=== PATIENT | female | born 1995 | race African-American/Black ===

== ENCOUNTER 2016-03-17 20:00 | Emergency (ER) | payer OTHER ==
[2016-03-17] MEDS ORDERED: ONDANSETRON 4 MG ORAL DISINTEGRATING TAB (S0181) As Ordered ONE (22:33)
[2016-03-17] MEDS ORDERED: KETOROLAC 30 MG/ML VIAL (J1885) As Ordered ONE (22:33)
[2016-03-17] MEDS ORDERED: NORCO 5/325MG TABLET (BULK) As Ordered ONE (23:29)
--- NOTE | 2016-03-17 23:34 | EDDOCDS ---
Physician Documentation [facility] Name: Jarred Layne Age: 20 yrs Sex: Female : 1995 Arrival Date: 03/17/2016 Time: 20:00 Bed PD Private MD: Other - Complete Info On Cds Disposition: 03/17/16 22:27 Discharged to Home/Self Care. Impression: Dysmenorrhea, unspecified. - Condition is Stable. - Discharge Instructions: Dysmenorrhea. - Prescriptions for ZOFRAN ODT 4 mg - dissolve 1 tablet by ORAL route 4 times per day As needed do not chew, do not swallow whole; 10 tablet. - Medication Reconciliation, Local Pharmacy Hours form. - Follow up: Elfego Cabrera MD; When: Call to arrange an appointment; Reason: Recheck today's complaints, Continuance of care. - Problem is new. - Symptoms are unchanged. Historical: - Allergies: no known allergies; - Home Meds: 1. ibuprofen 400 mg Oral tab 1 tab every 6 hours (Last dose: 03/17/2016 15:00) - PMHx: none; - PSHx: none; - Social history: Smoking status: Patient states was never smoker of tobacco. No barriers to communication noted. - Family history: Not pertinent. - : The pt / caregiver states he / she is not on anticoagulants. Home medication list is obtained from the patient. - Exposure Risk Screening:: None identified. 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 2 in. (157.48 cm) (R); Pain 8/10; 22:01 BP 109 / 59; Pulse 75; Resp 16; Temp 99.7(O); Pulse Ox 98% on R/A; Pain 3/10; sew 23:04 BP 109 / 58; Pulse 88; Resp 16; Temp 98.4(O); Pulse Ox 97% on R/A; Pain 0/10; sew 20:03 Body Mass Index 24.69 (61.23 kg, 157.48 cm) mt4 MDM: 22:18 Ondansetron ODT Oral Disintegrating Tablet 4 mg PO once ordered. mo1 22:18 ketorolac 60 mg IM once ordered. mo1 22:18 HYDROcodone-acetaminophen 4 pack- 5 mg-325 mg 1 packets PO Per package directions; mo1 Dispense with patient. 1 po q4h prn for pain ordered. 22:26 Financial registration complete. 22:33 [facility] Agreement was scanned into [employer] and attached to record. gb 22:39 HYDROcodone-acetaminophen 4 pack- 5 mg-325 mg 1 packets PO Per package directions; jf3 Dispense with patient. 1 po q4h prn for pain ordered. Administered Medications: 22:39 Drug: ketorolac 60 mg [ketorolac 30 mg/mL (1 mL) injection solution (2 mL)] Route: IM; jf3 Site: right gluteus; 23:31 Follow up: Response: Pain is decreased slm 22:40 Drug: Ondansetron ODT 4 mg [ondansetron 4 mg disintegrating tablet (1 tabs)] Route: PO; jf3 23:31 Follow up: Response: Nausea is resolved slm 23:30 Drug: HYDROcodone-acetaminophen 4 pack- 1 packets [hydrocodone 5 mg-acetaminophen 325 slm mg tablet (1 tabs)] {Co-Signature: [email or web address] (Shira Francois RN).} Route: PO; Signatures: Corry Rios, Reg Reg Leonie Lopez RN RN [facility] Tj Dean PA PA mo1 Sonam Salmeron LPN LPN [facility] Christopher Mackay RN RN jf3 Shira Francois RN ld5 The chart was reviewed and I authenticate all verbal orders and agree with the evaluation and treatment provided.Attachments: 22:33 [facility] Payment Agreement gb [facility]
--- NOTE | 2016-03-17 23:34 | EDDOCDS ---
Nurse's Notes [facility] Name: Jarred Layne Age: 20 yrs Sex: Female : 1995 Arrival Date: 03/17/2016 Time: 20:00 Bed PD Private MD: Other - Complete Info On Cds Diagnosis: Dysmenorrhea, unspecified Presentation: 03/17 20:18 Presenting complaint: Patient states: my stomach hurts really really bad it started cj earlier this morning after eating breakfast, vomiting about five times, not able to eat or drink anything at all. Risk factors: the patient reports currently having a regular period. Adult Sepsis Screening: The patient does not have new or worsening altered mentation. Patient's respiratory rate is less than 22. Systolic blood pressure is greater than 100. Patient has a qSOFA score of 0- Negative Sepsis Screen. Suicide/Homicide risk assessment- the patient denies having any suicidal and/or homicidal ideations and does not present with any other emotional, behavioral or mental health complaints. 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 Transition of care: patient was not received from another setting of care. 20:18 Acuity: HEENA Level 3 [facility] 20:18 Method Of Arrival: Walkin/Carried/Asstd [facility] Triage Assessment: 20:21 General: Appears uncomfortable, Behavior is drowsy. Pain: Location: left lower quadrant [facility] Pain currently is 8 out of 10 on a pain scale. HIV screening NA for this visit Offered previously. active duty . GI: Reports nausea, vomiting, normal bowel habits. 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 ibuprofen 400 mg Oral tab 1 tab every 6 hours (Last dose: 03/17/2016 15:00) - PMHx: none; - PSHx: none; - Social history: Smoking status: Patient states was never smoker of tobacco. No barriers to communication noted. - Family history: Not pertinent. - : The pt / caregiver states he / she is not on anticoagulants. Home medication list is obtained from the patient. - Exposure Risk Screening:: None identified. Screenin:32 Screening information is obtained from the patient. Fall risk: No risks identified. slm Assistance ADL's: requires no assistance with activities of daily living. Abuse/DV Screen: The patient / caregiver reports he/she is: not in a situation that causes fear, pain or injury. Nutritional screening: No deficits noted. Advance Directives: Currently, there is no health care proxy. There is no active DNR order. There is There is no Power of Roll Tester. Advance directive information has not previously been placed in an [facility] medical record. Further advance directive information is declined. home support is adequate. Assessment: 22:40 General: Appears in no apparent distress, comfortable, Behavior is cooperative. Pain: jf3 Location: right lower quadrant and left lower quadrant Pain currently is 3 out of 10 on a pain scale. Neurological: Level of Consciousness is awake, alert, Oriented to person, place, time. Cardiovascular: Chest pain is denied. Respiratory: Airway is patent Respiratory effort is even, unlabored, Respiratory pattern is regular, symmetrical. GI: Abdomen is non- distended. Derm: Skin is normal. 22:41 General:. jf3 23:32 Reassessment: Patient appears in no apparent distress at this time. Patient states slm feeling better. Vital Signs: 20:03 BP 120 / 59 RA Sitting (auto/reg); Pulse 80 RA; Resp 18 S; Temp 98.5(O); Pulse Ox 100% mt4 on R/A; Weight 61.23 kg (R); Height 5 ft. 2 in. (157.48 cm) (R); Pain 8/10; 22:01 BP 109 / 59; Pulse 75; Resp 16; Temp 99.7(O); Pulse Ox 98% on R/A; Pain 3/10; sew 23:04 BP 109 / 58; Pulse 88; Resp 16; Temp 98.4(O); Pulse Ox 97% on R/A; Pain 0/10; sew 20:03 Body Mass Index 24.69 (61.23 kg, 157.48 cm) nv4 Vitals: 20:03 Log In Time: March 17, 2016 at 20:00. nv4 ED Course: 20:03 Patient visited by Caitlyn Caldera. mt4 20:03 Other - Complete Info On Cds is Private Physician. mt4 20:03 Patient moved to Waiting mt4 20:04 Patient moved to Pre RCE mt4 20:20 Triage Initiated [facility] 21:58 Patient moved to Triage 1 sew 22:01 Patient visited by Arina Hairston. sew 22:03 [facility] mo1 22:03 Ike Hall DO is Attending Physician. mo1 22:12 Patient visited by Tj Dean PA. mo1 22:27 Elfego Cabrera MD is Referral Physician. mo1 22:32 Patient name changed from Bradleya\S\D\S\Layne\S\ to Vonniesha\S\Deshunn\S\Layne. EDMS 22:33 [facility] Payment Agreement was scanned into [employer] and attached to record. gb 22:35 Patient moved to PD jf3 22:41 Patient visited by Christopher Mackay RN. jf3 23:04 Patient visited by Arina Hairston. sew 23:31 Sonam Salmeron LPN is Primary Nurse. slm 23:32 No IV's were initiated during this patient's visit. No procedures done that require slm assistance. 23:33 The patient / caregiver is instructed regarding the plan of care and ED course. Patient slm has correct armband on for positive identification. Bed in low position. Call light in reach. Side rails up X 1. Administered Medications: 22:39 Drug: ketorolac 60 mg [ketorolac 30 mg/mL (1 mL) injection solution (2 mL)] Route: IM; jf3 Site: right gluteus; 23:31 Follow up: Response: Pain is decreased slm 22:40 Drug: Ondansetron ODT 4 mg [ondansetron 4 mg disintegrating tablet (1 tabs)] Route: PO; jf3 23:31 Follow up: Response: Nausea is resolved slm 23:30 Drug: HYDROcodone-acetaminophen 4 pack- 1 packets [hydrocodone 5 mg-acetaminophen 325 slm mg tablet (1 tabs)] {Co-Signature: [email or web address] (Shira Francois RN).} Route: PO; Order Results: There are currently no results for this order. Outcome: 22:27 Discharge ordered by Provider. mo1 23:32 Discharge Assessment: Patient awake, alert and oriented x 3. No cognitive and/or slm functional deficits noted. Patient verbalized understanding of disposition instructions. patient administered narcotics - no. The following High Risk Discharge criteria are identified: None. Discharged to home ambulatory. Condition: good Condition: improved. Discharge instructions given to patient, Instructed on discharge instructions, follow up and referral plans. medication usage, no driving heavy equipment, Demonstrated understanding of instructions, medications, Pt was receptive of discharge instructions/ teaching. Prescriptions given X 1. No special radiology studies were completed. Property :Personal belongings accompany Pt. 23:34 Patient left the ED. m Signatures: Dispatcher [employer] EDMS Corry Rios, Reg Reg carlos Werner, Caitlyn mt4 Leonie Lopez,RN RN Arina Kim Michael, PA PA mo1 Sonam Salmeron LPN LPN Christopher Mckeon RN RN jf3 Shira Francois RN ld5 MTDD
--- NOTE | 2016-03-20 00:34 | EDDOCDS ---
Physician Documentation [facility] Name: Jarred Layne Age: 20 yrs Sex: Female : 1995 Arrival Date: 03/17/2016 Time: 20:00 Bed PD Private MD: Other - Complete Info On Cds Disposition: 03/17/16 22:27 Discharged to Home/Self Care. Impression: Dysmenorrhea, unspecified. - Condition is Stable. - Discharge Instructions: Dysmenorrhea. - Prescriptions for ZOFRAN ODT 4 mg - dissolve 1 tablet by ORAL route 4 times per day As needed do not chew, do not swallow whole; 10 tablet. - Medication Reconciliation, Local Pharmacy Hours form. - Follow up: Elfego Cabrera MD; When: Call to arrange an appointment; Reason: Recheck today's complaints, Continuance of care. - Problem is new. - Symptoms are unchanged. Historical: - Allergies: no known allergies; - Home Meds: 1. ibuprofen 400 mg Oral tab 1 tab every 6 hours (Last dose: 03/17/2016 15:00) - PMHx: none; - PSHx: none; - Social history: Smoking status: Patient states was never smoker of tobacco. No barriers to communication noted. - Family history: Not pertinent. - : The pt / caregiver states he / she is not on anticoagulants. Home medication list is obtained from the patient. - Exposure Risk Screening:: None identified. 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 2 in. (157.48 cm) (R); Pain 8/10; 22:01 BP 109 / 59; Pulse 75; Resp 16; Temp 99.7(O); Pulse Ox 98% on R/A; Pain 3/10; sew 23:04 BP 109 / 58; Pulse 88; Resp 16; Temp 98.4(O); Pulse Ox 97% on R/A; Pain 0/10; sew 20:03 Body Mass Index 24.69 (61.23 kg, 157.48 cm) mt4 MDM: 22:18 Ondansetron ODT Oral Disintegrating Tablet 4 mg PO once ordered. mo1 22:18 ketorolac 60 mg IM once ordered. mo1 22:18 HYDROcodone-acetaminophen 4 pack- 5 mg-325 mg 1 packets PO Per package directions; mo1 Dispense with patient. 1 po q4h prn for pain ordered. 22:26 Financial registration complete. :33 [facility] Payment Agreement was scanned into [employer] and attached to record. gb 22:39 HYDROcodone-acetaminophen 4 pack- 5 mg-325 mg 1 packets PO Per package directions; jf3 Dispense with patient. 1 po q4h prn for pain ordered. 03/18 12:13 T-Sheet-- Draft Copy was scanned into [employer] and attached to record. gb Administered Medications: 03/17 22:39 Drug: ketorolac 60 mg [ketorolac 30 mg/mL (1 mL) injection solution (2 mL)] Route: IM; jf3 Site: right gluteus; 23:31 Follow up: Response: Pain is decreased slm 22:40 Drug: Ondansetron ODT 4 mg [ondansetron 4 mg disintegrating tablet (1 tabs)] Route: PO; jf3 23:31 Follow up: Response: Nausea is resolved slm 23:30 Drug: HYDROcodone-acetaminophen 4 pack- 1 packets [hydrocodone 5 mg-acetaminophen 325 slm mg tablet (1 tabs)] {Co-Signature: [email or web address] (Shira Francois RN).} Route: PO; Signatures: Corry Rios, Reg Reg Leonie Lopez,RN RN [facility] Tj Dean PA PA mo1 Sonam Salmeron LPN SH[employer] S[employer] m Christopher Mackay RN RN jf3 Shira Francois RN ld5 The chart was reviewed and I authenticate all verbal orders and agree with the evaluation and treatment provided.Attachments: 22:33 [facility] Payment Agreement 03/18 12:13 T-Sheet-- Draft Copy gb Chart Complete MTDD
--- NOTE | 2016-03-20 00:34 | EDDOCDS ---
Physician Documentation [facility] Name: Jarred Layne Age: 20 yrs Sex: Female : 1995 Arrival Date: 03/17/2016 Time: 20:00 Bed PD Private MD: Other - Complete Info On Cds Disposition: 03/17/16 22:27 Discharged to Home/Self Care. Impression: Dysmenorrhea, unspecified. - Condition is Stable. - Discharge Instructions: Dysmenorrhea. - Prescriptions for ZOFRAN ODT 4 mg - dissolve 1 tablet by ORAL route 4 times per day As needed do not chew, do not swallow whole; 10 tablet. - Medication Reconciliation, Local Pharmacy Hours form. - Follow up: Elfego Cabrera MD; When: Call to arrange an appointment; Reason: Recheck today's complaints, Continuance of care. - Problem is new. - Symptoms are unchanged. Historical: - Allergies: no known allergies; - Home Meds: 1. ibuprofen 400 mg Oral tab 1 tab every 6 hours (Last dose: 03/17/2016 15:00) - PMHx: none; - PSHx: none; - Social history: Smoking status: Patient states was never smoker of tobacco. No barriers to communication noted. - Family history: Not pertinent. - : The pt / caregiver states he / she is not on anticoagulants. Home medication list is obtained from the patient. - Exposure Risk Screening:: None identified. 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 2 in. (157.48 cm) (R); Pain 8/10; 22:01 BP 109 / 59; Pulse 75; Resp 16; Temp 99.7(O); Pulse Ox 98% on R/A; Pain 3/10; sew 23:04 BP 109 / 58; Pulse 88; Resp 16; Temp 98.4(O); Pulse Ox 97% on R/A; Pain 0/10; sew 20:03 Body Mass Index 24.69 (61.23 kg, 157.48 cm) mt4 MDM: 22:18 Ondansetron ODT Oral Disintegrating Tablet 4 mg PO once ordered. mo1 22:18 ketorolac 60 mg IM once ordered. mo1 22:18 HYDROcodone-acetaminophen 4 pack- 5 mg-325 mg 1 packets PO Per package directions; mo1 Dispense with patient. 1 po q4h prn for pain ordered. 22:26 Financial registration complete. :33 [facility] Payment Agreement was scanned into [employer] and attached to record. gb 22:39 HYDROcodone-acetaminophen 4 pack- 5 mg-325 mg 1 packets PO Per package directions; jf3 Dispense with patient. 1 po q4h prn for pain ordered. 03/18 12:13 T-Sheet-- Draft Copy was scanned into [employer] and attached to record. gb Administered Medications: 03/17 22:39 Drug: ketorolac 60 mg [ketorolac 30 mg/mL (1 mL) injection solution (2 mL)] Route: IM; jf3 Site: right gluteus; 23:31 Follow up: Response: Pain is decreased slm 22:40 Drug: Ondansetron ODT 4 mg [ondansetron 4 mg disintegrating tablet (1 tabs)] Route: PO; jf3 23:31 Follow up: Response: Nausea is resolved slm 23:30 Drug: HYDROcodone-acetaminophen 4 pack- 1 packets [hydrocodone 5 mg-acetaminophen 325 slm mg tablet (1 tabs)] {Co-Signature: [email or web address] (Shira Francois RN).} Route: PO; Signatures: Corry Rios, Reg Reg Leonie Lopez,RN RN [facility] Tj Dean PA PA mo1 Sonam Salmeron LPN [employer] m Christopher Mackay RN RN jf3 Shira Francois RN ld5 The chart was reviewed and I authenticate all verbal orders and agree with the evaluation and treatment provided.Attachments: 22:33 [facility] Payment Agreement 03/18 12:13 T-Sheet-- Draft Copy gb Chart Complete MTDD
--- NOTE | 2016-03-20 00:34 | EDDOCDS ---
Nurse's Notes [facility] Name: Jarred Layne Age: 20 yrs Sex: Female : 1995 Arrival Date: 03/17/2016 Time: 20:00 Bed PD Private MD: Other - Complete Info On Cds Diagnosis: Dysmenorrhea, unspecified Presentation: 03/17 20:18 Presenting complaint: Patient states: my stomach hurts really really bad it started cj earlier this morning after eating breakfast, vomiting about five times, not able to eat or drink anything at all. Risk factors: the patient reports currently having a regular period. Adult Sepsis Screening: The patient does not have new or worsening altered mentation. Patient's respiratory rate is less than 22. Systolic blood pressure is greater than 100. Patient has a qSOFA score of 0- Negative Sepsis Screen. Suicide/Homicide risk assessment- the patient denies having any suicidal and/or homicidal ideations and does not present with any other emotional, behavioral or mental health complaints. 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 Transition of care: patient was not received from another setting of care. 20:18 Acuity: HEENA Level 3 [facility] 20:18 Method Of Arrival: Walkin/Carried/Asstd [facility] Triage Assessment: 20:21 General: Appears uncomfortable, Behavior is drowsy. Pain: Location: left lower quadrant [facility] Pain currently is 8 out of 10 on a pain scale. HIV screening NA for this visit Offered previously. active duty . GI: Reports nausea, vomiting, normal bowel habits. 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 ibuprofen 400 mg Oral tab 1 tab every 6 hours (Last dose: 03/17/2016 15:00) - PMHx: none; - PSHx: none; - Social history: Smoking status: Patient states was never smoker of tobacco. No barriers to communication noted. - Family history: Not pertinent. - : The pt / caregiver states he / she is not on anticoagulants. Home medication list is obtained from the patient. - Exposure Risk Screening:: None identified. Screenin:32 Screening information is obtained from the patient. Fall risk: No risks identified. slm Assistance ADL's: requires no assistance with activities of daily living. Abuse/DV Screen: The patient / caregiver reports he/she is: not in a situation that causes fear, pain or injury. Nutritional screening: No deficits noted. Advance Directives: Currently, there is no health care proxy. There is no active DNR order. There is There is no Power of Clinical Trials Specialist. Advance directive information has not previously been placed in an [facility] medical record. Further advance directive information is declined. home support is adequate. Assessment: 22:40 General: Appears in no apparent distress, comfortable, Behavior is cooperative. Pain: jf3 Location: right lower quadrant and left lower quadrant Pain currently is 3 out of 10 on a pain scale. Neurological: Level of Consciousness is awake, alert, Oriented to person, place, time. Cardiovascular: Chest pain is denied. Respiratory: Airway is patent Respiratory effort is even, unlabored, Respiratory pattern is regular, symmetrical. GI: Abdomen is non- distended. Derm: Skin is normal. 22:41 General:. jf3 23:32 Reassessment: Patient appears in no apparent distress at this time. Patient states slm feeling better. Vital Signs: 20:03 BP 120 / 59 RA Sitting (auto/reg); Pulse 80 RA; Resp 18 S; Temp 98.5(O); Pulse Ox 100% mt4 on R/A; Weight 61.23 kg (R); Height 5 ft. 2 in. (157.48 cm) (R); Pain 8/10; 22:01 BP 109 / 59; Pulse 75; Resp 16; Temp 99.7(O); Pulse Ox 98% on R/A; Pain 3/10; sew 23:04 BP 109 / 58; Pulse 88; Resp 16; Temp 98.4(O); Pulse Ox 97% on R/A; Pain 0/10; sew 20:03 Body Mass Index 24.69 (61.23 kg, 157.48 cm) nv4 Vitals: 20:03 Log In Time: March 17, 2016 at 20:00. nv4 ED Course: 20:03 Patient visited by Caitlyn Caldera. mt4 20:03 Other - Complete Info On Cds is Private Physician. mt4 20:03 Patient moved to Waiting mt4 20:04 Patient moved to Pre RCE mt4 20:20 Triage Initiated [facility] 21:58 Patient moved to Triage 1 sew 22:01 Patient visited by Arina Hairston. sew 22:03 Tj Dean PA is PHCP. mo1 22:03 Ike Hall DO is Attending Physician. mo1 22:12 Patient visited by Tj Dean PA. mo1 22:27 Elfego Cabrera MD is Referral Physician. mo1 22:32 Patient name changed from Bradleya\S\D\S\Layne\S\ to Vonniesha\S\Deshunn\S\Layne. EDMS 22:33 [facility] Payment Agreement was scanned into [employer] and attached to record. gb 22:35 Patient moved to PD jf3 22:41 Patient visited by Christopher Mackay RN. jf3 23:04 Patient visited by Arina Hairston. sew 23:31 Sonam Salmeron LPN is Primary Nurse. slm 23:32 No IV's were initiated during this patient's visit. No procedures done that require slm assistance. 23:33 The patient / caregiver is instructed regarding the plan of care and ED course. Patient slm has correct armband on for positive identification. Bed in low position. Call light in reach. Side rails up X 1. 03/18 12:13 T-Sheet-- Draft Copy was scanned into [employer] and attached to record. gb Administered Medications: 03/17 22:39 Drug: ketorolac 60 mg [ketorolac 30 mg/mL (1 mL) injection solution (2 mL)] Route: IM; jf3 Site: right gluteus; 23:31 Follow up: Response: Pain is decreased slm 22:40 Drug: Ondansetron ODT 4 mg [ondansetron 4 mg disintegrating tablet (1 tabs)] Route: PO; jf3 23:31 Follow up: Response: Nausea is resolved slm 23:30 Drug: HYDROcodone-acetaminophen 4 pack- 1 packets [hydrocodone 5 mg-acetaminophen 325 slm mg tablet (1 tabs)] {Co-Signature: [email or web address] (Shira Francois RN).} Route: PO; Order Results: There are currently no results for this order. Outcome: 22:27 Discharge ordered by Provider. mo1 23:32 Discharge Assessment: Patient awake, alert and oriented x 3. No cognitive and/or slm functional deficits noted. Patient verbalized understanding of disposition instructions. patient administered narcotics - no. The following High Risk Discharge criteria are identified: None. Discharged to home ambulatory. Condition: good Condition: improved. Discharge instructions given to patient, Instructed on discharge instructions, follow up and referral plans. medication usage, no driving heavy equipment, Demonstrated understanding of instructions, medications, Pt was receptive of discharge instructions/ teaching. Prescriptions given X 1. No special radiology studies were completed. Property :Personal belongings accompany Pt. 23:34 Patient left the ED. slm Signatures: Dispatcher [employer] EDMS Corry Rios, Reg Reg carlos Werner, Caitlyn mt4 Leonie Lopez,RN RN Arina Atkins Michael, PA PA mo1 Sonam Salmeron LPN LPN Christopher Ewing,RN RN jf3 Shira Francois RN ld5 Chart Complete ISAC
== END 2016-03-17 23:34 | disposition home or self-care (01) ==
LOC: M ED 20:00
DX: N94.6 Dysmenorrhea, unspecified (principal); N92.0 Excessive and frequent menstruation with regular cycle
CPT/HCPCS: 96372; 99283; J1885

== ENCOUNTER 2017-01-07 23:53 | Emergency (ER) | payer OTHER ==
[~2017-01-07] VITALS: Ht 160 cm; Wt 59.1 kg
[2017-01-08] MEDS ORDERED: MOTR200T44 PO (00:26)
[2017-01-08] MEDS ORDERED: IBUP80TA PO (01:55)
[2017-01-08] MEDS ORDERED: ZOFR4TAB3 PO (01:55)
[2017-01-08] MEDS ORDERED: NORCO 5/325MG TABLET (BULK FOR ED) PO ONE (02:00)
[2017-01-08] MEDS ORDERED: KETOROLAC 60 MG/2 ML VIAL (J1885) IM ONE (02:00)
[2017-01-08] MEDS ORDERED: ONDANSETRON 4 MG ORAL DISINTEGRATING TAB (S0181) PO ONE (02:00)
[2017-01-08 02:44] VITALS: BP 141/69
== END 2017-01-08 02:47 | disposition home or self-care (01) ==
LOC: M ED 23:53
DX: N94.6 Dysmenorrhea, unspecified (principal); R10.2 Pelvic and perineal pain
CPT/HCPCS: 81025; 96372; 99284; J1885

== ENCOUNTER → 2018-04-08 | Outpatient (CLI) | payer OTHER ==
[~2018-04-08] MED LIST: CONRAY-43 43% 50ML VIAL (Q9960) As Ordered ONE; IBUP80TA PO; MOTR200T44 PO; PROHANCE 279.3MG/ML 5ML VIAL (A9576) As Ordered ONE; ZOFR4TAB14 PO
--- NOTE | 2018-04-08 09:46 | REP ---
MR ARTHROGRAM RIGHT HIP: TECHNIQUE: Coronal T1, STIR through the pelvis, post arthrogram axial T1 fat sat, T2 fat sat, coronal T1 fat sat, T2 fat sat, sagittal T1 fat sat, axial oblique T1 fat sat right hip. There is mild ill-defined high signal on T2-weighted images in the proximal right femur anterolaterally at the junction of head and neck of the femur. This is in a subcortical location. This is nonspecific. 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 No other abnormal bone marrow signal is seen. There is no evidence of avascular necrosis. I do not see evidence of a labral tear or paralabral cyst. There is a normal amount of joint fluid. Surrounding soft tissue structures demonstrate no abnormal signal. In the visualized portions of the pelvis, note is made of a left fundal fibroid 1.3 cm in diameter. Normal ovaries are visualized. Uterus is deviated to the left superiorly and to the right inferiorly. IMPRESSION: Mild nonspecific bone marrow edema in the proximal right femur anterolaterally in a subcortical location, at the junction of the head and neck of the femur. This is a nonspecific finding. 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 There is no evidence of a labral tear or other abnormality. Incidental note made of a left uterine fibroid. Electronically Signed by Aris Sorensen MD 04/08/2018 10:44 A
--- NOTE | 2018-04-09 09:16 | REP ---
Right hip arthrogram The procedure was performed under the direction supervision of Dr. Sorensen. The benefits and risks including but not limited to pain, infection, bleeding and anaphylaxis were explained to the patient and informed consent was obtained. The right femoral neck was localized using fluoroscopic guidance. Skin was prepped and draped in a sterile fashion. 1% lidocaine was used as a local anesthetic. Using fluoroscopic guidance a 22 gauge spinal needle was inserted and advanced to the femoral neck. 0.5 ml of Conray 43 was injected to verify placement. 11 ml of a solution containing 20 ml of sterile saline and 0.15 ml of ProHance was injected into the joint. The needle was removed and the patient was taken to MRI for postprocedural imaging. The patient tolerated the procedure well and there were no immediate complications. Less than 6 seconds of fluoro time was utilized for this procedure. Reviewed by LISSA Ram 04/08/2018 04:23 P Electronically Signed by Aris Sorensen MD 04/09/2018 09:07 A
== END ==
LOC: M RADPRO 06:34
PROVIDERS: ATTEND Emergency Medicine
DX: D75.89 Other specified diseases of blood and blood-forming organs (principal); M25.551 Pain in right hip
CPT/HCPCS: 27093; 73723; 77002; A9576; Q9960